=== PATIENT | female | born 1975 | race Caucasian/White ===

== ENCOUNTER 2020-01-11 20:06 | Outpatient (CLI) | payer OTHER | END 2020-01-11 20:07 | disposition critical access hospital (66) | LOC: EMS 20:06 | PROVIDERS: ATTEND Surgery | DX: R41.82 Altered mental status, unspecified (principal); R45.1 Restlessness and agitation; F41.9 Anxiety disorder, unspecified | CPT/HCPCS: A0425; A0429 ==

== ENCOUNTER 2020-01-11 20:39 | Emergency (ER) | payer OTHER ==
[2020-01-11] MEDS ORDERED: SODIUM CHLORIDE 0.9% 1,000 ML IV STA ×3 (20:51→22:54)
[2020-01-11 21:10] LABS: BASOPHILS # (AUTO) 0.1 10^3/uL (0.0-0.1); BASOPHILS % (AUTO) 1.2 %; EOSINOPHILS # (AUTO) 0.2 10^3/uL (0.0-0.7); EOSINOPHILS % (AUTO) 2.4 %; HGB - HEMOGLOBIN 15.2 g/dL (12.0-16.0); LYMPHOCYTES # (AUTO) 2.6 10^3/uL (1.5-3.5); LYMPHOCYTES % (AUTO) 39.7 %; MEAN CORPUSCULAR HEMOGLOBIN 33.7 pg (27.0-31.0); MEAN CORPUSCULAR HGB CONC 33.2 g/dL (32.0-36.0); MEAN CORPUSCULAR VOLUME 101.6 fL (81.0-99.0); MONOCYTES # (AUTO) 0.5 10^3/uL (0.0-1.0); MONOCYTES % (AUTO) 7.9 %; NEUTROPHILS # (AUTO) 3.2 10^3/uL (1.5-6.6); NEUTROPHILS % (AUTO) 48.3 %; PLT - PLATELET COUNT 276 10^3/uL (130-450); RED BLOOD COUNT 4.51 10^6/uL (4.20-5.40); RED CELL DISTRIBUTION WIDTH 11.9 % (12.0-15.0); WHITE BLOOD COUNT 6.6 x10^3/uL (4.8-10.8)
[2020-01-11 21:29] LABS: ACETAMINOPHEN < 10 ug/mL (10-30); ALBUMIN 4.7 g/dL (3.2-5.5); ALBUMIN/GLOBULIN RATIO 1.3 (1.0-2.2); ALKALINE PHOSPHATASE 75 IU/L (42-121); ALT ALANINE AMINOTRANSFERASE 22 IU/L (10-60); AST ASPARTATE AMINOTRANSFERASE 47 IU/L (10-42); BILIRUBIN,TOTAL 0.4 mg/dL (0.2-1.0); BUN - BLOOD UREA NITROGEN 7 mg/dL (6-20); CALCIUM 9.7 mg/dL (8.5-10.3); CARBON DIOXIDE - CO2 24 mmol/L (21-32); CHLORIDE 103 mmol/L (101-111); CREATININE 0.8 mg/dL (0.4-1.0); GLUCOSE 88 mg/dL (70-100); LIPASE 36 U/L (22-51); SALICYLATE < 6.0 mg/dL; SODIUM 144 mmol/L (135-145); TOTAL PROTEIN 8.4 g/dL (6.7-8.2)
--- NOTE | 2020-01-11 21:35 | CT Report ---
PROCEDURE: HEAD WO INDICATIONS: aloc TECHNIQUE: Noncontrast 4.5 mm thick angled axial sections acquired from the foramen magnum to the vertex. For r adiation dose reduction, the following was used: automated exposure control, adjustment of mA and/or kV according to patient size. COMPARISON: None. FINDINGS: Image quality: Excellent. CSF spaces: Basal cisterns are patent. No extra-axial fluid collections. Ventricles are normal in size and shape. Brain: No intracranial hemorrhage, mass, or mass effect. Garcia-white matter interface is preserved. Skull and face: Calvarium and visualized facial bones are intact, without suspicious lesions. Sinuses: Visualized sinuses and mastoids are clear. IMPRESSION: 1. No acute intracranial abnormality. Reviewed by: Laz Moyer MD on 01/11/2020 9:33 PM PDT Approved by: Laz Moyer MD on 01/11/2020 9:33 PM PDT Station ID: [id number]
--- NOTE | 2020-01-11 21:38 | ED Physician Documentation ---
PD HPI ALTERED MENTAL STATUS - Stated complaint Stated Complaint: AMS,ETOH - Chief complaint Chief Complaint: Neuro - History obtained from History obtained from: Friend - History of Present Illness Timing - onset: Unknown Quality / character: Less responsive Contributing factors: Intoxicated Basline status: Alert and oriented X 3, Ambulatory, Independent Recently seen: Other (see below) - Additional information Additional information: KAIT. Friend and co-worker called 911 (friend/co-worker is in ED at bedside and provides HPI, as patient is not communicating with me). Friend says patient spent 4 weeks in a rehab facility in [place], got out 3 days ago. Friend and patient spoke over the phone the past two days and patient sounded like she was doing well. Today, patient was not answering calls texts from friend and thus friend went to her house. She says she saw patient was inside her house and made eye contact but looked "out of it" and did not answer the door. Friend tried several times to get the patient to answer the door or at least respond to te xts/calls but after some time of not hearing back from patient and losing physical sight of the patient, she called 911. Review of Systems Unable to obtain: Intoxicated PD PAST MEDICAL HISTORY - Past Medical History Other Past Medical History: unknown - Present Medications Home Medications: Ambulatory Orders Medication Instructions Recorded Confirmed Home Medications Unobtainable 01/11/20 01/11/20 [HOME MEDICATIONS UNOBTAINABLE] - Allergies Allergies/Adverse Reactions: Allergies Allergy/AdvReac Type Severity Reaction Status Date / Time Unable to Assess Allergy Verified 01/11/20 21:10 - Living Situation Living Situation: reports: Alone Living Arrangement: reports: At home PD ED PE NORMAL - Vitals Vital signs reviewed: Yes - General General: No acute distress, Well developed/nourished, Other (holding blanket over her face and head and makes strong effort to resist when I try to move the blanket in order to examine her. She will not respond to any questions and the only command she followed was when I asked her to open eyes (did so briefly before yanking the blanket forcefully over face)) - HEENT HEENT: Atraumatic, PERRL, EOMI, Moist mucous membranes - Neck Neck: No bony TTP - Cardiac Cardiac: RRR, No murmur - Respiratory Respiratory: No respiratory distress, Clear bilaterally - Abdomen Abdomen: Soft, Non tender - Derm Derm: Normal color, Warm and dry - Extremities Extremities: No edema - Neuro Eye Opening: To Voice Motor: Obeys Commands (only obeys "open eyes". makes purposeful movements such as moving blanket over her head and face) Verbal: None GCS Score: 10 Results - Vitals Vitals: Vital Signs - 24 hr 01/12/20 01/12/20 07:20 08:59 Temperature 36.8 C 37.1 C Heart Rate 83 87 Respiratory 18 18 Rate Blood Pressure 122/87 H 117/86 H O2 Saturation 98 100 Oxygen O2 Source Room air - Labs Labs: Laboratory Tests 01/11/20 01/11/20 01/11/20 21:04 21:04 21:04 WBC 6.6 RBC 4.51 Hgb 15.2 Hct 45.8 MCV 101.6 H MCH 33.7 H MCHC 33.2 RDW 11.9 L Plt Count 276 MPV 9.0 Neut # (Auto) 3.2 Lymph # (Auto) 2.6 [place] # (Auto) 0.5 Eos # (Auto) 0.2 Baso # (Auto) 0.1 Absolute Nucleated RBC 0.00 Nucleated RBC % 0.0 Sodium 144 Potassium 4.0 Chloride 103 Carbon Dioxide 24 Anion Gap 17.0 H BUN 7 Creatinine 0.8 Estimated GFR (MDRD) 78 L Glucose 88 Calcium 9.7 Total Bilirubin 0.4 AST 47 H ALT 22 Alkaline Phosphatase 75 Total Protein 8.4 H Albumin 4.7 Globulin 3.7 Albumin/Globulin Ratio 1.3 Lipase 36 TSH 3.95 Salicylates < 6.0 Acetaminophen < 10 L Ethyl Alcohol 354.6 01/12/20 05:15 WBC RBC Hgb Hct MCV MCH MCHC RDW Plt Count MPV Neut # (Auto) Lymph # (Auto) [place] # (Auto) Eos # (Auto) Baso # (Auto) Absolute Nucleated RBC Nucleated RBC % Sodium Potassium Chloride Carbon Dioxide Anion Gap BUN Creatinine Estimated GFR (MDRD) Glucose Calcium Total Bilirubin AST ALT Alkaline Phosphatase Total Protein Albumin Globulin Albumin/Globulin Ratio Lipase TSH Salicylates Acetaminophen Ethyl Alcohol 191.7 - Rads (name of study) CT head Radiology: Prelim report reviewed, See rad report PD MEDICAL DECISION MAKING - ED course Complexity details: reviewed results, re-evaluated patient, considered differential, d/w patient ED course: Significantly elevated serum ethanol level but otherwise unremarkable test results. I reevaluated patient approximately midnight, as friend said patient was more awake and answering questions; however, when I reevaluated her, she exhibited same behaviors. Held in ED overnight pending sobriety before disposition can be determined (cannot sign out AMA if still intoxicated, and might not require AMA if she mabel up and declines social work services and/or placement to rehab if appropriate). Departure - Departure Disposition: 01 Home, Self Care Clinical Impression: AMS (altered mental status) Qualifiers: Altered mental status type: unspecified Qualified Code(s): R41.82 - Altered mental status, unspecified Alcohol intoxication Qualifiers: Complication of substance-induced condition: uncomplicated Qualified Code(s): F10.920 - Alcohol use, unspecified with intoxication, uncomplicated Condition: Stable Instructions: ED Alcohol Intoxication Comments: Well-hydrated. Normal activity. Light exercise and good nutrition are helpful. Avoid alcohol of course. Follow-up with any outpatient counseling or support groups that you have available. Discharge Date/Time: 01/12/20 08:59
--- NOTE | 2020-01-12 08:58 | ED Physician Documentation ---
ED Addendum - Addendum Addendum: 01/12/20 08:55 At change of shift, The patient is ambulatory and conversant. Her estimated blood alcohol level however would still be elevated above the legal limit. As such we would want the patient to have a safe ride home for discharge. She did not want to talk with the social work and did not need information about alcohol treatment as she had just been in a detox program and given another follow-up resources. She is understanding of us wanting to ensure her having a safe discharge and obtaining a ride home or awaiting for her to be under the legally sober limit. She would be calling for a ride. Subsequently her spouse/ex-spouse did arrive to pick her up. She asked that we not convey any information or lab test to review results to him and that is her prerogative. She is discharged in stable condition.
[2020-01-12 09:00] VITALS: BP 117/86
== END 2020-01-12 08:59 | disposition home or self-care (01) ==
LOC: EDUNIT# → ED 20:39
DX: R41.82 Altered mental status, unspecified (principal); F10.920 Alcohol use, unspecified with intoxication, uncomplicated
CPT/HCPCS: 36415; 70450; 80053; 80307; 80320; 80329; 83690; 84443; 85025; 96360; 96361; 99281

== ENCOUNTER 2020-09-19 15:04 | Outpatient (CLI) | payer OTHER | END 2020-09-19 15:05 | disposition critical access hospital (66) | LOC: EMS 15:04 | DX: R42 Dizziness and giddiness (principal) | CPT/HCPCS: A0425; A0429 ==

== ENCOUNTER 2020-09-19 15:38 | Emergency (ER) | payer OTHER ==
[2020-09-19] MEDS ORDERED: LORazepam 2 MG/ML VIAL IVP STA (16:09)
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
[2020-09-19 16:18] VITALS: BP 138/93
[2020-09-19 16:20] LABS: BASOPHILS % (AUTO) 0.5 %; EOSINOPHILS % (AUTO) 0.2 %; HCT - HEMATOCRIT 34.9 % (37.0-47.0); HGB - HEMOGLOBIN 12.3 g/dL (12.0-16.0); LYMPHOCYTES # (AUTO) 1.5 10^3/uL (1.5-3.5); LYMPHOCYTES % (AUTO) 37.1 %; MEAN CORPUSCULAR HEMOGLOBIN 33.1 pg (27.0-31.0); MEAN CORPUSCULAR HGB CONC 35.2 g/dL (32.0-36.0); MEAN CORPUSCULAR VOLUME 93.8 fL (81.0-99.0); MEAN PLATELET VOLUME 9.5 fL (7.9-10.8); MONOCYTES # (AUTO) 0.4 10^3/uL (0.0-1.0); NEUTROPHILS # (AUTO) 2.2 10^3/uL (1.5-6.6); NEUTROPHILS % (AUTO) 52.7 %; PLT - PLATELET COUNT 39 10^3/uL (130-450); RED BLOOD COUNT 3.72 10^6/uL (4.20-5.40); RED CELL DISTRIBUTION WIDTH 12.1 % (12.0-15.0); WHITE BLOOD COUNT 4.1 x10^3/uL (4.8-10.8)
[2020-09-19 16:32] LABS: ALBUMIN/GLOBULIN RATIO 1.8 (1.0-2.2); BILIRUBIN,TOTAL 1.2 mg/dL (0.2-1.0); CALCIUM 9.4 mg/dL (8.5-10.3); CREATININE 0.7 mg/dL (0.4-1.0); POTASSIUM 3.6 mmol/L (3.5-5.0); TOTAL PROTEIN 7.8 g/dL (6.7-8.2)
--- NOTE | 2020-09-19 16:44 | CT Report ---
PROCEDURE: HEAD WO INDICATIONS: fall, head injury TECHNIQUE: Noncontrast 4.5 mm thick angled axial sections acquired from the foramen magnum to the vertex. For r adiation dose reduction, the following was used: automated exposure control, adjustment of mA and/or kV according to patient size. COMPARISON: 01/11/2020 FINDINGS: Image quality: Excellent. CSF spaces: Basal cisterns are patent. No extra-axial fluid collections. Ventricles are normal in size and shape. Brain: No midline shift. No intracranial masses or hemorrhage. Garcia-white matter interface is norm al. Skull and face: Calvarium and visualized facial bones are intact, without suspicious lesions. Sinuses: Visualized sinuses and mastoids are clear. IMPRESSION: No evidence of an acute intracranial abnormality. Reviewed by: Israel Han DO on 09/19/2020 3:43 PM PREETHI Approved by: Israel Han DO on 09/19/2020 3:43 PM PREETHI Station ID: [id number]
--- NOTE | 2020-09-19 16:46 | CT Report ---
PROCEDURE: CERVICAL SPINE WO INDICATIONS: fall, neck pain TECHNIQUE: Noncontrast 3 mm thick sections acquired from the skull base to the T4 level. Sagittal and coronal r eformats were then constructed. For radiation dose reduction, the following was used: automated exp osure control, adjustment of mA and/or kV according to patient size. COMPARISON: None. FINDINGS: Image quality: Excellent. Bones: No fractures or dislocations. Visualized superior ribs are intact. Soft tissues: Prevertebral soft tissues are normal in thickness. No paravertebral hematomas. No ap ical pneumothoraces. IMPRESSION: Unremarkable cervical spine CT Reviewed by: Israel Han DO on 09/19/2020 3:45 PM PREETHI Approved by: Israel Han DO on 09/19/2020 3:45 PM PREETHI Station ID: [id number]
== END 2020-09-19 17:24 | disposition home or self-care (01) ==
LOC: EDUNIT# → ED 15:38
DX: S06.0X0A Concussion without loss of consciousness, initial encounter (principal); S00.83XA Contusion of other part of head, initial encounter; S60.519A Abrasion of unspecified hand, initial encounter; W01.0XXA Fall on same level from slipping, tripping and stumbling without subsequent striking against object, initial encounter; Y93.K1 Activity, walking an animal; D69.6 Thrombocytopenia, unspecified; Z72.89 Other problems related to lifestyle
CPT/HCPCS: 36415; 70450; 72125; 80053; 85025; 96374; 99284; J2060

== ENCOUNTER 2020-10-15 16:06 | Emergency (ER) | payer OTHER ==
--- OUTSIDE RECORDS SUMMARY | 2020-10-15 16:09 | EXTERNAL MEDICAL SUMMARY RPT | Continuity of Care Document ---
:1975 Demographics Phone Unavailable Preferred Language Tongan Marital Status Unknown Voodoo Affiliation Unknown Race Unknown Ethnic Group Unknown Author Organization [place] Address [address] [phone] Phone Care Team Providers Name Role Phone Amalia Morrissey Unavailable Unavailable Allergies Encounters Medications date description facility 20200921 Ondansetron 4 MG Disintegrating Tablet [facility] Problems Procedures date description facility [id number] General Physician [facility] Results Vital Signs date measurement value source [id number] weight_standard 104.98 lb 97230111 weight_metric 47.62 kg 84780723 temperature_standard 98.9 F 45671097 temperature_metric 37.17 C 93858061 respiration_rate 15 /min 30922235 height_standard 68 in [id number] height_metric 172.72 cm 66567640 heart_rate 83 /min 77621883 BP_systolic 131 mm[Hg] 56068776 BP_diastolic 88 mm[Hg] 18796679 BMI 16.0 kg/m2
[2020-10-15 16:14] VITALS: BP 127/81
--- OUTSIDE RECORDS SUMMARY | 2020-10-15 16:14 | EXTERNAL MEDICAL SUMMARY RPT | Continuity of Care Document ---
:1975 Demographics Phone Unavailable Preferred Language Nigerien Marital Status Unknown Confucianist Affiliation Unknown Race Unknown Ethnic Group Unknown Author Organization [place] Address [address] [phone] Phone Care Team Providers Name Role Phone Amalia Morrissey Unavailable Unavailable Allergies Encounters Medications date description facility [id number] Ondansetron 4 MG Disintegrating Tablet [facility] Problems Procedures date description facility [id number] General Physician [facility] Results Vital Signs date measurement value source [id number] weight_standard 104.98 lb 19799252 weight_metric 47.62 kg 64792945 temperature_standard 98.9 F 70966253 temperature_metric 37.17 C 89935302 respiration_rate 15 /min 90415906 height_standard 68 in 45337119 height_metric 172.72 cm 15040426 heart_rate 83 /min 60947211 BP_systolic 131 mm[Hg] 91273673 BP_diastolic 88 mm[Hg] 57749355 BMI 16.0 kg/m2
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
== END 2020-10-15 16:27 | disposition home or self-care (01) ==
LOC: ED 16:06
DX: F10.920 Alcohol use, unspecified with intoxication, uncomplicated (principal)
CPT/HCPCS: 99281